=== PATIENT | female | born 1955 | race Caucasian/White ===

== ENCOUNTER → 2017-08-23 | Outpatient (CLI) | payer OTHER ==
[~2017-08-23] MED LIST: REGADENOSON 0.4 MG/5 ML DISP.SYRIN. IV ONE
--- NOTE | 2017-08-23 17:00 | PCVCIMAG ---
APPROVED REPORT Exam: Nuclear Stress Test Indication: CAD , Pre-Operative CV evaluation Patient Location: Out-Patient Stress Nurse: Rachel Yan RN, Torri Malone RN [place] Tech:Nora THERESA Jackson Ht: 5 ft 3 in Wt: 231 lbs BSA: 2.06 m2 HR: 64 bpm BP: 136/63 mmHg BMI: 40.9 Rhythm: NSR Medical History Medical History: HTN, Hyperlipidemia, CAD, Age Medications: Toprol XL (held 18h), losartan, lasix, atorvastatin Allergies: No known drug allergies Pretest Chest Pain Characteristics: No chest pain Exercise History: Sedentary Physical Disabilities: Rotator cuff tear NM EXAM: Myocardial Perfusion REST/STRESS Imaging Protocol: Rest Tc-99m/Stress Tc-99m 1 day Resting Data Rest SPECT myocardial perfusion imaging was performed in supine position 45 minutes following the intravenous injection of 9.7 mCi of Tc-99m Sestamibi. Time of rest injection: 1300 Date: 08/23/2017 Administration Route: IV Administration Site: Left Arm Pharmacologic Stress Pharmacologic stress test was performed by injecting Regadenoson 0.4 mg IV push followed by the intravenous injection of 31.7 mCi of Tc-99m Sestamibi. Time of stress injection: 1430 Date: 08/23/2017 Administration Route: IV Administration Site: Left AC Study Quality Study: Good Study Data Post stress, the left ventricular ejection was 66%.. SSS: 6 SRS: 12 SDS: 0 TID = 0.94. Perfusion No evidence of stress induced ischemia or prior myocardial infarction. Wall Motion Normal left ventricular function with no regional wall motion abnormalities. Nuclear Conclusion No evidence of stress induced ischemia or prior myocardial infarction. Normal left ventricular function with no regional wall motion abnormalities. Post stress, the left ventricular ejection was 66%.. Interpreted by: David Mabry MD Electronically Approved: 08/23/2017 16:57:29 Stress Test Details Stress Test: Pharmacologic stress testing performed using 0.4 mg of regadenoson per 5 mL given IV over 10 seconds. Reason for pharmacologic stress test: physical limitation. HR Resting HR: 64 bpmMax Heart Rate (APMHR): 157 bpm Max HR Achieved: 81 bpmTarget HR (85% APMHR): 133 bpm % of APMHR: 51 Recovery HR: 69 bpm BP Resting BP: 136/63 mmHg Max BP: 118/53 mmHg ECG Resting ECG: Sinus Rhythm Stress ECG: Sinus Rhythm Recovery ECG: Sinus Rhythm Clinical Reason for Termination: Completed protocol Stress Symptoms: Dyspnea, Nausea Exercise duration: 0 min 55 sec Symptoms resolved during recovery. Stress ECG Conclusion Normal hemodynamic response to pharmacologic stress. ECG: Non-ischemic <Conclusion> Normal hemodynamic response to pharmacologic stress. ECG: Non-ischemic
== END | disposition home or self-care (01) ==
LOC: PCVCIMAG 12:17
PROVIDERS: ATTEND Internal Medicine Cardiovascular Disease
DX: Z01.818 Encounter for other preprocedural examination (principal); I25.10 Atherosclerotic heart disease of native coronary artery without angina pectoris
CPT/HCPCS: 78452; 93017; A9500; J2785

== ENCOUNTER → 2017-11-08 | Outpatient (CLI) | payer OTHER | END | disposition home or self-care (01) | LOC: PCVCIMAG 14:08 | DX: I11.0 Hypertensive heart disease with heart failure (principal); I50.9 Heart failure, unspecified; R00.2 Palpitations; I42.9 Cardiomyopathy, unspecified; E78.5 Hyperlipidemia, unspecified; I70.1 Atherosclerosis of renal artery; R06.09 Other forms of dyspnea; I08.8 Other rheumatic multiple valve diseases; R94.31 Abnormal electrocardiogram [ECG] [EKG]; Z87.891 Personal history of nicotine dependence; Z79.899 Other long term (current) drug therapy; Z79.84 Long term (current) use of oral hypoglycemic drugs | CPT/HCPCS: 80061; 93005; 93306 ==

== ENCOUNTER → 2018-08-03 | Outpatient (CLI) | payer OTHER ==
--- NOTE | 2018-08-03 17:43 | PCVCIMAG ---
APPROVED REPORT Indications Bruit Doppler Spectral Velocity Analysis PSV / EDVPSV / EDV ECA (R) 117 / 7 cm/sECA (L) 95 / 11 cm/s dICA (R) 106 / 29 cm/sdICA (L) 68 / 19 cm/s Mandeep (R) 71 / 23 cm/smICA (L) 89 / 29 cm/s pICA (R) 71 / 15 cm/spICA (L) 77 / 11 cm/s Bulb (R) 61 / 13 cm/sBulb (L) 50 / 9 cm/s dCCA (R) 87 / 17 cm/sdCCA (L) 115 / 15 cm/s mCCA (R) 87 / 14 cm/smCCA (L) 145 / 21 cm/s Vert (R) 69 / 15 cm/sVert (L) 34 / 8 cm/s ICA/CCA 1.22ICA/CCA 0.77 Real Time B-Mode Imaging Vert. (R)AntegradeVert. (L)Antegrade Findings The right carotid bulb has no significant plaque. The right proximal internal carotid artery shows no significant stenosis. The right common carotid artery shows no significant stenosis. The right external carotid artery shows no significant stenosis. The left carotid bulb has mild plaque. The left proximal internal carotid artery shows no significant stenosis. The left common carotid artery shows no significant stenosis. The left external carotid artery shows no significant stenosis. Conclusion 1. Mild bilataral plaquing without significant stenosis 2. Antegrade vertebral flow
== END | disposition home or self-care (01) ==
LOC: PCVCIMAG 16:12
PROVIDERS: ATTEND Internal Medicine Cardiovascular Disease
DX: R09.89 Other specified symptoms and signs involving the circulatory and respiratory systems (principal)
CPT/HCPCS: 93880

== ENCOUNTER → 2018-08-24 | Outpatient (CLI) | payer OTHER ==
--- NOTE | 2018-08-24 13:25 | PCVCIMAG ---
EXAM: BILATERAL RENAL ULTRASOUND AND BILATERAL RENAL DUPLEX INDICATION: Hypertension FINDINGS: Right kidney: Length measures 11.9 cm. No hydronephrosis or extensive renal scarring. Right renal duplex: Adequate technical quality. 40-50% proximal renal artery stenosis. The aortic to renal artery ratio is 2.5. The renal vein is patent. Left kidney: Length measures 12.2 cm. No hydronephrosis or extensive renal scarring. Left renal duplex: Adequate technical quality. No sonographic evidence of renal artery stenosis. The aortic to renal artery ratio is 2.1. The renal vein is patent. Bladder: No obvious abnormalities. IMPRESSION: 40% proximal right renal artery stenosis is unchanged since 2016 study. No significant left renal artery stenosis. LOC:[id number]
== END ==
LOC: PCVCIMAG 10:44
PROVIDERS: ATTEND Internal Medicine Cardiovascular Disease
DX: I10 Essential (primary) hypertension (principal)
CPT/HCPCS: 76770; 93975

== ENCOUNTER → 2018-08-24 | Outpatient (CLI) | payer OTHER ==
--- NOTE | 2018-08-24 16:42 | PCVCIMAG ---
APPROVED REPORT Study performed: 08/24/2018 13:09:51 EXAM: Comprehensive 2D, Doppler, and color-flow Echocardiogram Patient Location: Echo lab Status: routine BSA: 2.18 HR: 63 bpmBP: 127/58 mmHg Rhythm: NSR Other Information Study Quality: Adequate Risk Factors: Cardiac Risk Factors: HTN, Hyperlipidemia, DM Indications Dyspnea Cardiomyopathy Pre op gastric bypass surgery 2D Dimensions IVSd: 7.58 (7-11mm)LVOT Diam: 16.78 (18-24mm) LVDd: 58.82 mm PWd: 9.18 (7-11mm)Ascending Ao: 32.91 (22-36mm) LVDs: 36.55 (25-40mm) Left Atrium: 37.01 (27-40mm) Aortic Root: 27.30 mm LV Single Plane 4CH: 59.79 % LV Single Plane 2CH: 57.90 % Biplane EF: 58.6 % Volumes Left Atrial Volume (Systole) Single Plane 4CH: 60.68 mLSingle Plane 2CH: 39.56 mL LA ESV Index: 23.00 mL/m2 Aortic Valve AoV Peak Ben.: 1.28 m/s AO Peak Gr.: 6.56 mmHg Mitral Valve E/A Ratio: 1.1 MV Decel. Time: 196.57 ms MV E Max Ben.: 0.85 m/s MV A Ben.: 0.74 m/s TDI E/Lateral E': 10.63E/Medial E': 12.14 Medial E' Ben.: 0.07 m/s Lateral E' Ben.: 0.08 m/s Pulmonary Valve PV Peak Gr.: 2.80 mmHg Pulmonary Vein P Vein S: 0.54 m/sP Vein A: 0.28 m/s P Vein D: 0.44 m/sP Vein A Dur.: 83.0 msec P Vein S/D Ratio: 1.23 Tricuspid Valve TR Peak Ben.: 2.74 m/s TR Peak Gr.: 29.99 mmHg Left Ventricle The left ventricle is normal size. There is normal LV segmental wall motion. There is normal left ventricular wall thickness. Left ventricular systolic function is normal. The left ventricular ejection fraction is within the normal range. LVEF is >55%. The left ventricular diastolic function is normal. Right Ventricle The right ventricle is normal size. The right ventricular systolic function is normal. Atria The left atrium size is normal. The right atrium size is normal. Aortic Valve The aortic valve is normal in structure. Trace aortic regurgitation. There is no aortic valvular stenosis. Mitral Valve The mitral valve is normal in structure. Mild mitral regurgitation. No evidence of mitral valve stenosis. Tricuspid Valve The tricuspid valve is normal in structure. Trace tricuspid regurgitation. Pulmonary artery pressure is 37mmHg. Pulmonic Valve The pulmonary valve is normal in structure. There is no pulmonic valvular regurgitation. Great Vessels The aortic root is normal in size. IVC is normal in size and collapses >50% with inspiration. Pericardium There is no pericardial effusion. <Conclusion> Normal echocardiogram. The left ventricle is normal size. LVEF is >55%. The left ventricular diastolic function is normal. The right ventricle is normal size. The left atrium size is normal. The aortic valve is normal in structure. Trace aortic regurgitation. Mild mitral regurgitation. Trace tricuspid regurgitation. Pulmonary artery pressure is 37mmHg. The aortic root is normal in size. There is no pericardial effusion.
--- NOTE | 2018-08-24 16:44 | PCVCIMAG ---
APPROVED REPORT Imaging Protocol: Rest Tc-99m/Stress Tc-99m 1 day Study performed: 08/24/2018 13:57:01 Indication: Cardiomypathy, Palpitations, Dyspnea, Pre-Operative CV evaluation Patient Location: Out-Patient Stress Nurse: Rachel Yan RN, Reva Flaherty RN [place] Tech:THERESA Leggett Ht: 5 ft 3 in Wt: 265 lbs BSA: 2.18 m2 HR: 65 bpm BP: 153/68 mmHg BMI: 46.9 Rhythm: Sinus Rhythm Medical History Medical History: Diabetes, Former Smoker, PVD, CM Medications: Losartan, Metformin, Metoprolol, Crestor, Demedex Allergies: Lipitor Pretest Chest Pain Characteristics: No chest pain Exercise History: Sedentary Physical Disabilities: Exercise intolerance Meds Held (24 hrs): Metoprolol Resting Data Rest SPECT myocardial perfusion imaging was performed in supine position 45 minutes following the intravenous injection of 13 mCi of Tc-99m Sestamibi. Time of rest injection: 1245 Administration Route: IV Administration Site: Right AC Pharmacologic Stress Pharmacologic stress test was performed by injecting Regadenoson 0.4 mg IV push over 10-15 seconds immediately followed by the intravenous injection of 45.1 mCi of Tc-99m Sestamibi. Time of stress injection: 1430 Date: 08/24/2018 Administration Route: IV Administration Site: Right AC Gated Stress SPECT was performed 45 minutes after stress injection. The images were gated to evaluate regional wall motion and calculate left ventricular ejection fraction. Comments Prior Nuclear Stress Test 2017: Non-ischemic Stress Test Details Stress Test: Pharmacologic stress testing performed using 0.4 mg of regadenoson per 5 mL given IV over 10 seconds. Reason for pharmacologic stress test: physical limitation, exercise intollerance. HRMax Heart Rate (APMHR): 156 bpm Resting HR: 65 bpmTarget HR (85% APMHR): 132 bpm Max HR Achieved: 89 bpm % of APMHR: 57 Recovery HR: 70 bpm BP Resting BP: 153/68 mmHg Max BP: 121/58 mmHg Recovery BP: 107/56 mmHg ECG Resting ECG: Sinus Rhythm Stress ECG: Sinus Rhythm, Sinus Bradycardia Arrhythmia: None Recovery ECG: Sinus Rhythm Clinical Reason for Termination: Completed protocol Stress Symptoms: Dyspnea, Lightheaded Exercise duration: 0 min 55 sec Symptoms resolved with caffeine. Stress ECG Conclusion ECG: Non-ischemic Clinical: Non-ischemic Study Quality Study: Good Study Data Post stress, the left ventricular ejection was 71%.. SSS: 2 SRS: 6 SDS: 0 TID = 0.91. Perfusion No evidence of stress induced ischemia or prior myocardial infarction. Wall Motion Mild ventricular chamber dilatation. Nuclear Conclusion No evidence of stress induced ischemia or prior myocardial infarction. Post stress, the left ventricular ejection was 71%. No change since prior study dated July2017. Interpreted by: David Mabry MD Electronically Approved: 08/24/2018 16:12:50 <Conclusion> ECG: Non-ischemic Clinical: Non-ischemic
== END | disposition home or self-care (01) ==
LOC: PCVCIMAG 07:55
PROVIDERS: ATTEND Internal Medicine Cardiovascular Disease
DX: I34.0 Nonrheumatic mitral (valve) insufficiency (principal); I10 Essential (primary) hypertension; I42.9 Cardiomyopathy, unspecified; R06.00 Dyspnea, unspecified; E78.5 Hyperlipidemia, unspecified; E11.9 Type 2 diabetes mellitus without complications; R07.9 Chest pain, unspecified; R00.2 Palpitations; F17.200 Nicotine dependence, unspecified, uncomplicated
CPT/HCPCS: 78452; 93017; 93306; A9500; J2785

== ENCOUNTER → 2019-09-06 | Outpatient (CLI) | payer MEDICARE ==
--- NOTE | 2019-09-06 16:51 | PCVCIMAG ---
APPROVED REPORT Study performed: 09/06/2019 14:47:51 EXAM: Comprehensive 2D, Doppler, and color-flow Echocardiogram Patient Location: Echo lab Status: routine BSA: 1.98 HR: 56 bpmBP: 112/70 mmHg Rhythm: Bradycardia Other Information Study Quality: Adequate Risk Factors: Cardiac Risk Factors: HTN, Hyperlipidemia Indications Diabetes Bradycardia Cardiomyopathy 2D Dimensions IVSd: 11.63 (7-11mm) LVDd: 49.26 mm PWd: 8.86 (7-11mm)Ascending Ao: 33.57 (22-36mm) LVDs: 40.80 (25-40mm) Left Atrium: 45.80 (27-40mm) Aortic Root: 28.93 mm LV Single Plane 4CH: 60.54 % LV Single Plane 2CH: 60.09 % Biplane EF: 60.4 % Volumes Left Atrial Volume (Systole) Single Plane 4CH: 89.00 mLSingle Plane 2CH: 96.81 mL LA ESV Index: 48.00 mL/m2 Aortic Valve AoV Peak Ben.: 1.29 m/s AO Peak Gr.: 6.68 mmHgLVOT Max P.22 mmHg LVOT Max V: 0.90 m/s Mitral Valve E/A Ratio: 1.5 MV Decel. Time: 214.74 ms MV E Max Ben.: 0.75 m/s MV A Ben.: 0.49 m/s IVRT: 93.43 ms Pulmonary Valve PV Peak Ben.: 1.05 m/sPV Peak Gr.: 4.37 mmHg Pulmonary Vein P Vein S: 0.54 m/sP Vein A: 0.34 m/s P Vein D: 0.69 m/sP Vein A Dur.: 145.3 msec P Vein S/D Ratio: 0.78 Tricuspid Valve TR Peak Ben.: 2.62 m/s TR Peak Gr.: 27.40 mmHg TV Vmax: 0.57 m/s Left Ventricle The left ventricle is normal size. There is normal LV segmental wall motion. Borderline concentric left ventricular hypertrophy. Left ventricular systolic function is normal. The left ventricular ejection fraction is within the normal range. LVEF is 55%. The left ventricular diastolic function is normal. Right Ventricle The right ventricle is normal size. The right ventricular systolic function is normal. Atria Left atrium is moderately dilated. Right atrium is mildly dilated. Aortic Valve The aortic valve is normal in structure. Trace aortic regurgitation. There is no aortic valvular stenosis. Mitral Valve The mitral valve is normal in structure. Moderate mitral regurgitation. No evidence of mitral valve stenosis. Tricuspid Valve The tricuspid valve is normal in structure. Mild tricuspid regurgitation with PAP of 34 mmHg. Pulmonic Valve The pulmonary valve is normal in structure. Trace pulmonic regurgitation. Great Vessels The aortic root is normal in size. IVC is normal in size and collapses >50% with inspiration. Pericardium There is no pericardial effusion. There is no pleural effusion. <Conclusion> The left ventricle is normal size. Borderline concentric left ventricular hypertrophy. LVEF is 55%. The right ventricle is normal size. Left atrium is moderately dilated. Right atrium is mildly dilated. The aortic valve is normal in structure. Trace aortic regurgitation. Moderate mitral regurgitation. Moderate mitral regurgitation. Mild tricuspid regurgitation with PAP of 34 mmHg. The aortic root is normal in size. There is no pericardial effusion.
== END | disposition home or self-care (01) ==
LOC: PCVCIMAG 15:10
PROVIDERS: ATTEND Internal Medicine Cardiovascular Disease
DX: I08.1 Rheumatic disorders of both mitral and tricuspid valves (principal); I42.9 Cardiomyopathy, unspecified; R00.1 Bradycardia, unspecified; E11.9 Type 2 diabetes mellitus without complications; E78.5 Hyperlipidemia, unspecified; R06.09 Other forms of dyspnea; E78.01 Familial hypercholesterolemia; I10 Essential (primary) hypertension; I25.10 Atherosclerotic heart disease of native coronary artery without angina pectoris; J45.909 Unspecified asthma, uncomplicated; E78.00 Pure hypercholesterolemia, unspecified; E66.9 Obesity, unspecified; Z87.891 Personal history of nicotine dependence; Z88.8 Allergy status to other drugs, medicaments and biological substances; Z90.710 Acquired absence of both cervix and uterus
CPT/HCPCS: 93306; G0463